=== PATIENT | male | born 2000 | race Caucasian/White ===

== ENCOUNTER 2020-05-24 10:53 | Emergency (ER) | payer OTHER, SELFPAY ==
--- NOTE | 2020-05-24 11:00 | ED.GENADULT ---
HPI - General Adult General Chief complaint: Skin/Abscess/Foreign Body Stated complaint: pos hemorrhoid Time Seen by Provider: 05/24/20 10:59 Source: patient Mode of arrival: ambulatory Limitations: no limitations History of Present Illness HPI narrative: 19-year-old male patient presents to the [facility] with complaints of possible hemorrhoid for the past couple of weeks. Patient denies any bleeding. Patient states he does have pain to the area when sitting. Patient denies any fevers, body aches or chills. Patient denies any bleeding or discomfort when having bowel movement. Patient states he has felt around and states it is kind of like a lump or a sac filled with something. Patient states he is sexually active but only sexually active with women and denies any anal intercourse. Denies any discharge coming from the anus. Related Data Allergies Allergy/AdvReac Type Severity Reaction Status Date / Time No Known Allergies Allergy Mild Verified 12/22/15 16:56 Review of Systems Review of Systems: Narrative: CONSTITUTIONAL: Denies fever, chills, or sweats. EYES: Denies visual changes, redness, or discharge. ENT: Denies rhinorrhea, congestion, sore throat, or otalgia. CARDIOVASCULAR: Denies chest pain, palpitations, or edema. RESPIRATORY: Denies cough or dyspnea. GASTROINTESTINAL: Denies abdominal pain, nausea, vomiting, or diarrhea. GENITOURINARY: Denies dysuria or hematuria. SKIN: Denies rash or itching. Positive wound to anus MUSCULOSKELETAL: Denies back pain, joint pain, or myalgia. NEUROLOGIC: Denies headache, numbness, or weakness. PSYCHIATRIC: Denies anxiety or depression. PMFSH Comments At the time of my signature I agree with nursing past medical history, surgical, social, and family history. There is no relevant family history pertinent to the presenting complaint. Exam Narrative: Exam Narrative: GENERAL: Well-appearing, well-nourished, and in no acute distress. HEAD: Normocephalic, atraumatic. EYES: PERRLA and EOMI. ENT: Nares clear, no rhinorrhea or epistaxis. Mucous membranes moist. NECK: Supple. No lymphadenopathy CHEST: Clear to auscultation. No respiratory distress. HEART: Regular rate and rhythm. No murmur heard. Normal peripheral pulses. ABDOMEN: Soft, nontender, nondistended, normal active bowel sounds. EXTREMITIES: Normal range of motion. No edema. SKIN: Warm, dry, no rash. Patient does have an external hemorrhoid noted on exam. There is no open areas, swelling or redness. There is slight tenderness when the hemorrhoid is palpated. NEURO: No focal deficits. Alert and oriented x3. Course Vital Signs Vital signs: Vital Signs Temperature 36.6 C 05/24/20 11:17 Pulse Rate 57 L 05/24/20 11:17 Respiratory Rate 16 05/24/20 11:17 Blood Pressure 104/67 05/24/20 11:17 Pulse Oximetry 100 05/24/20 11:17 Temperature 36.6 C 05/24/20 11:17 Pulse Rate 57 L 05/24/20 11:17 Respiratory Rate 16 05/24/20 11:17 Blood Pressure 104/67 05/24/20 11:17 Pulse Oximetry 100 05/24/20 11:17 Vital signs reviewed. Medical Decision Making Differential Diagnosis Differential Diagnosis: Differential diagnosis: Hemorrhoid, STD, herpes, abscess, cellulitis. Discussed with patient it does appear that he is got an external hemorrhoid. Discussed with patient I will go ahead and give him some topical hydrocortisone cream that would help with any pain or itching. Discussed with him that these typically go away on their own and because it is not causing any bleeding or any specific pain is reassuring. Discussed with patient his usually calls due to straining therefore I would recommend eating high-fiber foods and keeping the bowel movements nice and soft so he does not have to strain as much. Discussed with patient he can follow-up with his primary doctor for further evaluation in the next 5 to 7 days as needed. Patient verbalized understanding denies any other questions or concerns at this time. Vital
[2020-05-24 11:17] VITALS: BP 104/67; PULSE 57; RESP 16; TEMP 36.6; O2SAT 100
== END 2020-05-24 11:45 | disposition home or self-care (01) ==
PROVIDERS: Emergency Provider Nurse Practitioner Family
DX: K64.4 Residual hemorrhoidal skin tags (principal)
CPT/HCPCS: 99203; G0463